=== PATIENT | female | born 1980 | race Caucasian/White ===

== ENCOUNTER 2020-03-10 11:22 | Outpatient (RCR) | payer OTHER, SELFPAY ==
[2020-01-26 10:26] VITALS: BP 124/75; PULSE 68
[2020-02-02 11:21] VITALS: BP 127/87; PULSE 73
[2020-02-02 11:41] LABS: Basophils Percent Auto 0.2 % (0.2-1.2); Eosinophils Absolute Auto 0.1 K/mm3 (0-0.3); Eosinophils Percent Auto 1.3 % (0-4.4); Hematocrit 33.5 % (37.0-47.0); Hemoglobin 11.3 g/dL (12.0-15.0); Immature Granulocyte Absolute 0.04 K/mm3 (0.00-0.031); Immature Granulocyte Percent A 0.5 % (0-0.5); Lymphocytes Absolute Auto 0.99 K/mm3 (0.9-3.2); Lymphocytes Percent Auto 11.3 % (18.3-44.2); Mean Corpuscular HGB Conc 33.7 g/dl (32-36); Mean Corpuscular Hemoglobin 32.4 pg (26-34); Mean Platelet Volume 11.3 fl (7.4-10.4); Monocytes Absolute Auto 0.8 K/mm3 (0.1-0.6); Monocytes Percent Auto 8.7 % (2.6-8.5); Neutrophils Absolute Auto 6.8 K/mm3 (1.3-6.7); Platelet Count Result 184 k/mm3 (150-375); Red Blood Count 3.49 M/mm3 (4.2-5.4); Red Cell Distribution Width 13.2 % (11.5-14.5); White Blood Count 8.8 K/mm3 (4.5-10.0)
[2020-02-02 11:48] LABS: Add Urine Microscopic? YES; Appearance Urine Cloudy (Clear); Bacteria Urine 1+ /hpf; Bilirubin Urine Negative (Negative); Blood Urine Negative (Negative); Color Urine Yellow (Yellow); Glucose Urine UA Negative (Negative); Ketones Urine Negative (Negative); Leukocyte Esterase Ur Negative LEU/UL (NEGATIVE); Mucus Urine Rare /lpf; Nitrate Urine Negative (Negative); Protein Urine Negative (Negative); RBC Urine 0-2 /hpf (0-2); Specific Grav Ur 1.013 (1.001-1.035); Squamous Epithelial Cell Urine Occasional /hpf (Few); Urobilinogen Urine Negative mg/dL (<2.0); WBC Urine 0-3 /hpf (0-3)
[2020-02-02 11:53] LABS: Alanine Aminotransferase 19 U/L (4-35); Albumin Level 3.2 g/dL (3.5-5.1); Alkaline Phosphatase 58 U/L (38-126); Anion Gap 5 mmol/L (8-16); Aspartate Amino Transferase 31 U/L (14-36); Bilirubin,Total 0.3 mg/dL (0.2-1.3); Blood Urea Nitrogen 12 mg/dL (7-17); Calcium 8.6 mg/dL (8.4-10.2); Carbon Dioxide 22 mmol/L (22-30); Chloride 106 mmol/L (98-107); Estimated Glomerular Filt Rate > 60; Glucose 80 mg/dL (65-105); Potassium 4.4 mmol/L (3.4-5.0); Sodium 133 mmol/L (137-145); Uric Acid 3.6 mg/dL (2.5-7.5)
[2020-02-02 12:16] LABS: Creatinine Urine 64.3 mg/dL; Total Protein Urine Random 12 mg/dL; Ur Ttl Prot Creatinine Ratio 0.19 mg/mg (0-0.20)
[2020-02-09 10:08] VITALS: BP 121/78; PULSE 72
[2020-02-16 11:16] VITALS: BP 119/74; PULSE 72
[2020-02-23 14:19] VITALS: BP 128/73; PULSE 76
[2020-03-01 11:08] VITALS: BP 123/79; PULSE 60
[2020-03-08 11:40] VITALS: BP 133/89; PULSE 61
[2020-03-10 11:33] VITALS: BP 130/88; PULSE 68
[2020-03-10 11:45] VITALS: BP 123/78; PULSE 68
[2020-03-10 11:50] LABS: Basophils Percent Auto 0.3 % (0.2-1.2); Eosinophils Absolute Auto 0.1 K/mm3 (0-0.3); Eosinophils Percent Auto 1.1 % (0-4.4); Hematocrit 35.4 % (37.0-47.0); Immature Granulocyte Absolute 0.04 K/mm3 (0.00-0.031); Immature Granulocyte Percent A 0.4 % (0-0.5); Lymphocytes Absolute Auto 0.94 K/mm3 (0.9-3.2); Lymphocytes Percent Auto 10.3 % (18.3-44.2); Mean Corpuscular HGB Conc 33.9 g/dl (32-36); Mean Corpuscular Hemoglobin 32.8 pg (26-34); Mean Corpuscular Volume 96.7 fl (80-100); Mean Platelet Volume 11.2 fl (7.4-10.4); Monocytes Absolute Auto 0.9 K/mm3 (0.1-0.6); Monocytes Percent Auto 9.9 % (2.6-8.5); Neutrophils Absolute Auto 7.1 K/mm3 (1.3-6.7); Platelet Count Result 178 k/mm3 (150-375); Red Blood Count 3.66 M/mm3 (4.2-5.4); Red Cell Distribution Width 13.6 % (11.5-14.5); White Blood Count 9.1 K/mm3 (4.5-10.0)
[2020-03-10 12:01] VITALS: BP 127/78; PULSE 64
[2020-03-10 12:04] LABS: Alanine Aminotransferase 23 U/L (4-35); Albumin Level 3.3 g/dL (3.5-5.1); Alkaline Phosphatase 96 U/L (38-126); Anion Gap 2 mmol/L (8-16); Aspartate Amino Transferase 27 U/L (14-36); Bilirubin,Total 0.2 mg/dL (0.2-1.3); Blood Urea Nitrogen 10 mg/dL (7-17); Calcium 9.3 mg/dL (8.4-10.2); Carbon Dioxide 22 mmol/L (22-30); Chloride 109 mmol/L (98-107); Estimated Glomerular Filt Rate > 60; Glucose 89 mg/dL (65-105); Potassium 4.3 mmol/L (3.4-5.0); Sodium 133 mmol/L (137-145); Uric Acid 4.8 mg/dL (2.5-7.5)
[2020-03-10 12:15] VITALS: BP 127/78; PULSE 64
[2020-03-10 12:41] LABS: Add Urine Microscopic? NO; Appearance Urine Clear (Clear); Bilirubin Urine Negative (Negative); Blood Urine Negative (Negative); Color Urine Straw (Yellow); Glucose Urine UA Negative (Negative); Ketones Urine Negative (Negative); Leukocyte Esterase Ur Negative LEU/UL (Negative); Nitrate Urine Negative (Negative); Protein Urine Negative (Negative); Specific Grav Ur 1.008 (1.001-1.035); Urobilinogen Urine Negative mg/dL (<2.0)
[2020-03-10 12:50] LABS: Creatinine Urine 20.3 mg/dL; Total Protein Urine Random 14 mg/dL; Ur Ttl Prot Creatinine Ratio 0.69 mg/mg (0-0.20)
--- NOTE | 2020-03-10 14:14 | PC.NURSE ---
Random total protein / creatinine ratio result of 0.[address] Dudley's office.
== END 2020-03-15 08:02 | disposition home or self-care (01) ==
LOC: ANHOBOP 11:22
PROVIDERS: PCP Family Medicine; Visit Provider Student in an Organized Health Care Education/Training Program
DX: O09.513 Supervision of elderly primigravida, third trimester (principal); Z3A.32 32 weeks gestation of pregnancy; Z3A.33 33 weeks gestation of pregnancy; Z3A.34 34 weeks gestation of pregnancy; Z3A.35 35 weeks gestation of pregnancy; Z3A.36 36 weeks gestation of pregnancy; Z3A.37 37 weeks gestation of pregnancy; Z3A.38 38 weeks gestation of pregnancy
CPT/HCPCS: 36415; 59025; 80053; 81001; 81003; 82570; 84156; 84550; 85025; 87086; 87088

== ENCOUNTER 2020-03-12 19:49 | Inpatient (IN) | payer OTHER, SELFPAY ==
[2020-03-12] VITALS (9 sets, daily range): BP systolic 124–136; BP diastolic 79–89; PULSE 62–73; TEMP 36.4; BMI 31.2
--- NOTE | 2020-03-12 19:49 | LDADM ---
This patient, Shay Barcenas, was admitted to Labor/Delivery/Recovery 104 on 03/12/20 at 19:49. Plans for labor, pain management and were discussed with patient. Patient/family oriented to hospital policies and general routines including ID bracelet, bed and alarms, visiting hours, pain management, procedures, bathroom and other care routines, personal items, smoking policy, room service/diet and guest tray routines, security routines, and visiting hours. Patient/Family are encouraged to report perceived risks to care and to ask questions if they do not understand what they are told or what they should do. See OBIX for further documentation.
[2020-03-12 20:38] LABS: Basophils Percent Auto 0.3 % (0.2-1.2); Eosinophils Absolute Auto 0.1 K/mm3 (0-0.3); Eosinophils Percent Auto 1.4 % (0-4.4); Hematocrit 35.2 % (37.0-47.0); Hemoglobin 11.9 g/dL (12.0-15.0); Immature Granulocyte Absolute 0.04 K/mm3 (0.00-0.031); Immature Granulocyte Percent A 0.4 % (0-0.5); Lymphocytes Absolute Auto 1.22 K/mm3 (0.9-3.2); Lymphocytes Percent Auto 13.5 % (18.3-44.2); Mean Corpuscular HGB Conc 33.8 g/dl (32-36); Mean Corpuscular Hemoglobin 32.9 pg (26-34); Mean Corpuscular Volume 97.2 fl (80-100); Monocytes Percent Auto 11.5 % (2.6-8.5); Neutrophils Absolute Auto 6.6 K/mm3 (1.3-6.7); Neutrophils Percent Auto 72.9 % (45.5-73.1); Platelet Count Result 188 k/mm3 (150-375); Red Blood Count 3.62 M/mm3 (4.2-5.4); Red Cell Distribution Width 13.7 % (11.5-14.5)
[2020-03-12 20:51] LABS: Alanine Aminotransferase 27 U/L (4-35); Albumin Level 3.2 g/dL (3.5-5.1); Alkaline Phosphatase 98 U/L (38-126); Anion Gap 1 mmol/L (8-16); Aspartate Amino Transferase 29 U/L (14-36); Bilirubin,Total 0.2 mg/dL (0.2-1.3); Blood Urea Nitrogen 14 mg/dL (7-17); Calcium 8.7 mg/dL (8.4-10.2); Carbon Dioxide 21 mmol/L (22-30); Chloride 111 mmol/L (98-107); Estimated Glomerular Filt Rate > 60; Glucose 95 mg/dL (65-105); Potassium 3.9 mmol/L (3.4-5.0); Sodium 133 mmol/L (137-145); Uric Acid 4.2 mg/dL (2.5-7.5)
[2020-03-12] MEDS: LACTATED RINGERS 1,000 ML 125 ML IV CONT (21:21)
[2020-03-13] VITALS (35 sets, daily range): BP systolic 98–144; BP diastolic 63–97; PULSE 59–76; RESP 16–18; TEMP 36.3–36.9; O2SAT 100
[2020-03-13] MEDS: LACTATED RINGERS 1,000 ML 125 ML IV CONT ×2 (00:30→06:39)
[2020-03-13] MEDS: OXYTOCIN 30 UNITS/NS 500 ML 30 UNITS/500 ML BAG IV CONT (04:07)
--- NOTE | 2020-03-13 07:31 | PM.IMHP ---
H&P: HPI History of Present Illness Date/Time: 03/13/20 07:31 Chief Complaint: srom Narrative: Shay Barcenas is a 40 year old female She repeat two view 0 2 improvement. With 06/16/2019, EDC is 03/22/2020, presents at 38 and half weeks gestation with spontaneous rupture membranes. Her been complicated by positive hypertension. She was started on labetalol 200 b.i.d.. PIH labs here are normal and blood pressure is stable Review of Systems Review of Systems: All systems reviewed & are unremarkable except as noted in HPI and below PMFSH Family History Family History Father Diabetes mellitus Mother Hypertension Social History Social History Smoking status: Never smoker Substance use: never Spiritual care concerns: No Meds Home Medications and Allergies Home Medications Medication Instructions Recorded Confirmed Type PNV cmb#95-ferrous fumarate-FA 1 tablet PO DAILY 01/26/20 03/12/20 History [] labetalol 200 mg PO BID 03/12/20 03/12/20 History Allergies Allergy/AdvReac Type Severity Reaction Status Date / Time No Known Allergies Allergy Unknown Verified 02/23/20 13:43 Vital Signs Vital Signs - 24 hr 03/12/20 20:06 03/12/20 20:16 03/12/20 20:31 Temperature Pulse Rate 73 62 68 Blood Pressure 128/86 135/80 134/83 03/12/20 20:36 03/12/20 20:46 03/12/20 21:01 Temperature 97.6 F Pulse Rate 64 62 Blood Pressure 132/85 124/79 03/12/20 22:01 03/12/20 23:01 03/12/20 23:14 Temperature 97.6 F Pulse Rate 65 68 Blood Pressure 136/89 134/82 03/13/20 00:01 03/13/20 01:01 03/13/20 02:01 Temperature Pulse Rate 59 L 62 63 Blood Pressure 128/80 132/77 131/87 03/13/20 02:33 03/13/20 03:01 03/13/20 04:01 Temperature 97.8 F Pulse Rate 65 64 Blood Pressure 126/79 130/84 03/13/20 04:06 03/13/20 05:01 03/13/20 05:17 Temperature 97.7 F Pulse Rate 61 64 Blood Pressure 125/83 139/86 03/13/20 05:31 03/13/20 05:46 03/13/20 06:01 Temperature Pulse Rate 69 59 L 61 Blood Pressure 132/89 125/69 137/77 03/13/20 06:16 03/13/20 06:31 03/13/20 06:46 Temperature Pulse Rate 72 62 65 Blood Pressure 118/82 135/81 122/81 03/13/20 07:01 03/13/20 07:16 Temperature Pulse Rate 64 64 Blood Pressure 98/63 L 128/95 H Exam Const: General: no acute distress Eyes: General: appearance normal, both eyes and all related structures Neck: Neck: supple and no JVD Thyroid: thyroid normal Resp: Effort & Inspection: normal respiratory effort Auscultation: clear to auscultation bilaterally Cardio: Rate: regular rate Rhythm: regular rhythm GI: Inspection: non-distended GI Palp: Yes Soft to palpation, No Tenderness to palpation present (GI) and No Guarding due to palpation present (GI) Auscultation: normal bowel sounds : External Female Exam: normal external appearance Speculum Exam - Vagina: normal appearance of the vagina and normal vaginal discharge (rom plus positive) Speculum Exam - Cervix: Cervical os closed (cx 2.5 by rn exam. fhts ok) Skin: General skin exam: no rashes or lesions noted Extrem: General: normal to inspection and no edema Psych: Mental Status: mental status grossly normal Affect: normal affect H&P: Results Labs Labs: Short CBC 03/12/20 Range/Units 20:32 WBC 9.0 (4.5-10.0) K/mm3 Hgb 11.9 L (12.0-15.0) g/dL Hct 35.2 L (37.0-47.0) % Plt Count 188 (150-375) k/mm3 BMP 03/12/20 20:32 Sodium 133 L Potassium 3.9 Chloride 111 H Carbon Dioxide 21 L BUN 14 Creatinine 0.50 L Glucose 95 Calcium 8.7 Liver Function 03/12/20 Range/Units 20:32 Total Bilirubin 0.2 (0.2-1.3) mg/dL AST 29 (14-36) U/L ALT 27 (4-35) U/L Alkaline Phosphatase 98 (38-126) U/L Albumin 3.2 L (3.5-5.1) g/dL Assessment and Plan Additional Plan Impre
--- NOTE | 2020-03-13 10:12 | P.PNOB_ITS ---
OB - PN: Subj Subjective Date/time seen: 03/13/20 10:12 cx 7.5 by rn exam fhts reassuring OB - PN: Obj Data Labs CBC & Chem 7: 03/12/20 20:32 03/12/20 20:32 Labs: Laboratory Results - last 24 hr 03/12/20 03/12/20 03/12/20 20:32 20:32 20:32 WBC 9.0 RBC 3.62 L Hgb 11.9 L Hct 35.2 L MCV 97.2 MCH 32.9 MCHC 33.8 RDW 13.7 Plt Count 188 MPV 11.0 H Immature Gran % (Auto) 0.4 Neut % (Auto) 72.9 Lymph % (Auto) 13.5 L Woodward % (Auto) 11.5 H Eos % (Auto) 1.4 Baso % (Auto) 0.3 Lymph # (Auto) 1.22 Woodward # (Auto) 1.0 H Eos # (Auto) 0.1 Baso # (Auto) 0.0 Abs Immat Gran (auto) 0.04 H Absolute Neuts (auto) 6.6 Absolute Nucleated RBC 0.0 Nucleated RBC % 0.0 Sodium Potassium Chloride Carbon Dioxide Anion Gap BUN Creatinine Estim Creat Clear Calc Estimated GFR Glucose Uric Acid 4.2 Calcium Total Bilirubin AST ALT Alkaline Phosphatase Total Protein Albumin Blood Type A Positive Antibody Screen Negative 03/12/20 20:32 WBC RBC Hgb Hct MCV MCH MCHC RDW Plt Count MPV Immature Gran % (Auto) Neut % (Auto) Lymph % (Auto) Woodward % (Auto) Eos % (Auto) Baso % (Auto) Lymph # (Auto) Woodward # (Auto) Eos # (Auto) Baso # (Auto) Abs Immat Gran (auto) Absolute Neuts (auto) Absolute Nucleated RBC Nucleated RBC % Sodium 133 L Potassium 3.9 Chloride 111 H Carbon Dioxide 21 L Anion Gap 1 L BUN 14 Creatinine 0.50 L Estim Creat Clear Calc Not Reportable Estimated GFR > 60 Glucose 95 Uric Acid Calcium 8.7 Total Bilirubin 0.2 AST 29 ALT 27 Alkaline Phosphatase 98 Total Protein 6.0 L Albumin 3.2 L Blood Type Antibody Screen OB - PN A/P Time Spent With Patient Time: Total time spent is greater than 50% in coordination of care (as documented) at patient's floor/unit and/or counseling patient:
--- NOTE | 2020-03-13 10:44 | PM.OBPRVD ---
OB - Delivery Note Procedure Delivery date: 03/13/20 Intrapartal events: None Induction method: none Delivery augmentation: pitocin Delivery monitor: none Route of delivery: Episiotomy description: None Laceration Description: None Specimen: No Quantitative Blood Loss (ml): 258 Anesthesia type: None Disposition: floor Baby Date of : 03/13/20 Time of : 10:34 Weeks of gestation at delivery: 38 Infant gender: Male Weight (pounds): 7 Weight (ounces): 5 presentation: vertex position: Right Occiput Anterior Placenta delivery description: Spontaneous cord vessel description: 3 Vessels and Clamped/Cut score one minute: 9 score five minutes: 9
[2020-03-13] MEDS: OXYTOCIN 30 UNITS/NS 500 ML 30 UNITS/500 ML BAG 125 UNITS IV CONT (10:51)
[2020-03-13] MEDS: BENZOCAINE 20% AER SPR (*SP) 56 GM CAN 1 SPRAY TOPICAL (12:29)
[2020-03-13] MEDS: WITCH HAZEL 40 PADS 1 PAD TOPICAL (12:30)
--- NOTE | 2020-03-13 13:28 | OBPPTRN ---
Patient transferred to post room #281 via wheelchair. Support person present. Oriented to unit, room, information board, rooming in, admission packet and security measures. Patient verbalizes understanding.
[2020-03-14 05:07] LABS: Hematocrit 31.8 % (37.0-47.0); Hemoglobin 10.6 g/dL (12.0-15.0)
[2020-03-14 07:31] LABS: Rapid Plasma Reagin Non-Reactive (NonReactive)
[2020-03-14 07:55] VITALS: BP 119/82; PULSE 59; RESP 18; TEMP 36.4; O2SAT 98
[2020-03-14] MEDS: DOCUSATE SODIUM 100 MG CAPSULE PO ×2 (09:31→16:02)
[2020-03-14] MEDS: MULTIVIT/MIN/PREN/FOL AC/IRON TABLET 1 TAB PO (09:31)
[2020-03-14] MEDS: IBUPROFEN 600 MG TABLET PO ×2 (09:32→16:01)
--- NOTE | 2020-03-14 10:13 | PC.NURSE ---
Consulted with patient, reviewed feeding cues, frequencies, duration of feedings, feeding elimination flow sheet, and signs of adequate intake. Demonstrated stimulation techniques to wake for feeding. Assisted with to breast. Reviewed positioning/alignment, holding breast and asymmetrical latch on. was able to latch correctly. Infant nursed eagerly, with steady draws and frequent swallowing noted. Reviewed signs of a correct latch, effective nursing and suck swallow ratio. was able to maintain latch without discomfort to mother. Nipple care reviewed. Instructed mother to call out for RN assistance if she is unable to latch for feeding or she has discomfort with nursing. Instructed feeding should be initiated three hours from start of last feeding or if feeding cues are noted before. Mother voiced understanding of information shared.
--- NOTE | 2020-03-14 11:31 | PM.OBPNVD ---
OB - PN: Subj Subjective Date/time seen: 03/14/20 11:31 Patient comments: no complaints and pain well controlled baby status: doing well and nursing well OB - PN: Obj Data Labs CBC & Chem 7: 03/14/20 04:12 03/12/20 20:32 Labs: Laboratory Results - last 24 hr 03/12/20 03/14/20 20:32 04:12 Hgb 10.6 L Hct 31.8 L RPR Non-reactive OB - PN A/P Plan day: 1 Plan: routine care Time Spent With Patient Time: Total time spent is greater than 50% in coordination of care (as documented) at patient's floor/unit and/or counseling patient: Time with patient: less than 15 minutes Review of Systems Review of Systems: All systems reviewed & are unremarkable except as noted in HPI and below Exam Const: General: no acute distress Eyes: General: appearance normal, both eyes and all related structures Neck: Neck: supple and no JVD Thyroid: thyroid normal Resp: Effort & Inspection: normal respiratory effort Auscultation: clear to auscultation bilaterally Cardio: Rate: regular rate Rhythm: regular rhythm GI: Inspection: non-distended GI Palp: Yes Soft to palpation, No Tenderness to palpation present (GI) and No Guarding due to palpation present (GI) Auscultation: normal bowel sounds : General: Yes bladder normal to palpation External Female Exam: normal external appearance Speculum Exam - Vagina: normal vaginal discharge and No vaginal bleeding Speculum Exam - Cervix: nontender Bimanual exam- vagina & uterus: bladder normal to palpation and No Cervical tenderness present OB/external & speculum: No vaginal bleeding Skin: General skin exam: no rashes or lesions noted Extrem: General: normal to inspection and no edema Psych: Mental Status: mental status grossly normal Affect: normal affect
[2020-03-14 20:00] VITALS: BP 135/89; PULSE 79; RESP 18; TEMP 36.7; O2SAT 99
--- NOTE | 2020-03-15 07:39 | PM.OBDSVD ---
DS: Admitting Diagnosis Admitting Diagnosis Admitting Diagnosis: calloway intrauterine in the third trimester OB - DS: Summary OB Procedures : None OB Procedures Intrapartum: Spontaneous Vag Delivery OB Procedures: : None Status at Discharge Functional status at discharge: independent ambulation Overall status at discharge: patient is back to baseline Time Spent with Patient Time attestation: Total time spent providing and/or coordinating discharge services: Time spent: Less than 30 minutes Exam Const: General: comfortable and no acute distress Resp: Effort & Inspection: normal respiratory effort Auscultation: clear to auscultation bilaterally Cardio: Rate: regular rate GI: GI Palp: Yes Soft to palpation Auscultation: normal bowel sounds Other: Fundus firm below umbilicus Psych: Appearance: grossly normal Mental Status: mental status grossly normal Affect: normal affect Discharge Plan Discharge Discharging Clinician: Triston Dudley Patient Disposition: Home, Self-Care Activity: as tolerated and pelvic rest Diet: regular Discharge Instructions: call or return for temperature >100.4, bleeding >2 pads/hr for 2 hrs, pain not controlled with medications, signs/symptoms of mastitis Patient Instructions: Antibiotic Form, Vaginal Delivery (DC) Stand Alone Forms: General Discharge Information Follow-up/Referrals: Triston Dudley MD [Physician] - 1 Week Discharge Medications: New acetaminophen [Mapap (acetaminophen)] 325 mg Tablet 650 mg PO Q6H PRN (Reason: Mild Pain (1-3) Or Headache) Qty: 30 RF: 0 ibuprofen 600 mg Tablet 600 mg PO Q6H PRN (Reason: Cramping) Qty: 30 RF: 0 Qns-J-Csyxav Cream 1 applic topical PRN PRN (Reason: Sore Nipples) Qty: 28 RF: 0 Continued PNV cmb#95-ferrous fumarate-FA [] 28 mg iron- 800 mcg Tablet 1 tablet PO DAILY RF: 0 labetalol 200 mg tablet 200 mg PO BID RF: 0 Date of admission: 03/12/20 19:49 Primary Care Provider: Clemencia,Yohannes Uribe Admitting Provider: Triston Dudley Attending physician on admission: Triston Dudley Condition: Stable
[2020-03-15 08:20] VITALS: BP 124/83; PULSE 62; RESP 18; TEMP 36.6; O2SAT 98
[2020-03-15] MEDS: MULTIVIT/MIN/PREN/FOL AC/IRON TABLET 1 TAB PO (08:20)
[2020-03-15] MEDS: DOCUSATE SODIUM 100 MG CAPSULE PO (08:20)
[2020-03-15] MEDS: IBUPROFEN 600 MG TABLET PO (08:21)
[2020-03-16 11:00] VITALS: BP 137/86; PULSE 64; RESP 20; TEMP 37.1; O2SAT 97
== END 2020-03-15 13:54 | disposition home or self-care (01) | DRG 560 ==
LOC: ANHLDR 20:49 → ANHOB2 03-13 13:31
PROVIDERS: Admitting Provider Obstetrics & Gynecology; PCP Family Medicine; Visit Provider Student in an Organized Health Care Education/Training Program
DX: O13.4 Gestational [pregnancy-induced] hypertension without significant proteinuria, complicating childbirth (principal); Z3A.38 38 weeks gestation of pregnancy; Z37.0 Single live birth
CPT/HCPCS: 36415; 80053; 84112; 84550; 85014; 85018; 85025; 86592; 86850; 86900; 86901; A9270; J2590; J7120